=== PATIENT | female | born 1985 | race Asian ===

== ENCOUNTER 2021-09-28 19:22 | Emergency (ER) | payer BC ==
[2021-09-28] MEDS ORDERED: Boostrix 0.5 ML (Tdap) VIAL ONE (20:46)
== END 2021-09-28 20:50 | disposition home or self-care (01) ==
LOC: CSHERS 19:22
DX: S61.452A Open bite of left hand, initial encounter (principal); S60.512A Abrasion of left hand, initial encounter; W55.01XA Bitten by cat, initial encounter
CPT/HCPCS: 90471; 90715; 99283

== ENCOUNTER 2021-10-01 22:40 | Emergency (ER) | payer BC ==
[2021-10-02] MEDS ORDERED: Rabies Vaccine Human 2.5 UNITS VIAL ONE (01:26)
== END 2021-10-02 01:57 | disposition home or self-care (01) ==
LOC: CSHERS 22:40
DX: Z20.3 Contact with and (suspected) exposure to rabies (principal); Z23 Encounter for immunization
CPT/HCPCS: 90375; 90675

== ENCOUNTER → 2021-10-05 | Day surgery (SDC) | payer BC ==
[~2021-10-05] MED LIST: Rabies Vaccine Human 2.5 UNITS VIAL ONE
== END ==
LOC: CSHER/OP 08:11
PROVIDERS: ATTEND Pathology Anatomic Pathology & Clinical Pathology
DX: Z20.3 Contact with and (suspected) exposure to rabies (principal); Z23 Encounter for immunization
CPT/HCPCS: 90375; 90471; 90675; 96372

== ENCOUNTER → 2021-10-12 | Day surgery (SDC) | payer BC | END | disposition home or self-care (01) | LOC: CSHER/OP 17:58 | PROVIDERS: ATTEND Pathology Anatomic Pathology & Clinical Pathology | DX: Z23 Encounter for immunization (principal) | CPT/HCPCS: 90471 ==

== ENCOUNTER → 2021-10-26 | Day surgery (SDC) | payer BC | LOC: CSHERS 23:06 | PROVIDERS: ATTEND Emergency Medicine | DX: Z23 Encounter for immunization (principal) | CPT/HCPCS: 90675 ==

== ENCOUNTER → 2021-11-13 | Day surgery (SDC) | payer BC | LOC: CSHERS 15:03 | PROVIDERS: ATTEND Emergency Medicine | DX: Z23 Encounter for immunization (principal) | CPT/HCPCS: 90675 ==

== ENCOUNTER 2023-02-14 13:44 | Outpatient (CLI) | payer BC | END 2023-02-14 13:45 | disposition home or self-care (01) | LOC: CSHCT 13:44 | PROVIDERS: ATTEND Family Medicine | DX: R91.1 Solitary pulmonary nodule (principal) | CPT/HCPCS: 71250 ==

== ENCOUNTER 2024-06-10 18:36 | Emergency (ER) | payer BC ==
[2024-06-10] MEDS ORDERED: Ketorolac Tromethamine 30 MG (1 mL) VIAL ONE (19:54)
[2024-06-10 20:14] LABS: #Basophils Less than 0.03 10x3/uL (0.0-0.2); #Eosinophils Less than 0.03 10x3/uL (0.0-0.5); #Monocytes 0.69 10x3/uL (0.0-1.1); #Neutrophils 13.61 10x3/uL (1.5-8.4); %Basophils 0.1 % (0.0-2.0); %Lymphocytes 5.9 % (18.0-47.0); %Monocytes 4.5 % (0.0-10.0); Hematocrit 39.5 % (34.9-44.5); Hemoglobin 13.6 g/dL (12.0-15.5); Mean Corpuscular HGB CONC 34.4 g/dL (32.0-36.0); Mean Corpuscular Hemoglobin 30.5 pg (27.0-33.0); Mean Corpuscular Volume 88.6 fL (81.6-98.3); Mean Platelet Volume 9.7 fL (7.4-10.4); Platelet Count 227 10x3/uL (150-450); RBC Distribution Width 11.8 % (11.5-14.5); Red Blood Cell (RBC) Count 4.46 10x6/uL (3.90-5.03); White Blood Cell (WBC) Count 15.29 10x3/uL (3.5-10.5)
[2024-06-10 20:20] LABS: BHCG - Serum Negative (NEGATIVE)
[2024-06-10 20:21] LABS: Pregs Control Background? CLEAR/WHITE (CLR/WHITE); Pregs Control Bar Appear? YES (CONTROL BAR)
[2024-06-10 20:32] LABS: ALT (SGPT) 10 U/L (Less than 34); AST (SGOT) 21 U/L (11-34); Albumin 3.9 g/dL (3.1-4.5); Alkaline Phosphatase 77 U/L (40-110); Anion Gap 16 mmol/L (10-20); BUN (Urea Nitrogen) 11 mg/dL (7.0-18.7); Bilirubin, Total 0.8 mg/dL (0.3-1.2); Calc. Creatinine Clearance 0 mL/min (70-130); Calcium 9.5 mg/dL (7.8-10.44); Carbon Dioxide 17 mmol/L (22-29); Chloride 108 mmol/L (98-107); Estimated GFR 110; Globulin 3.5 g/dL (2.4-3.5); Glucose 120 mg/dL (70-105); Lipase 17 U/L (8-78); Magnesium 1.7 mg/dL (1.6-2.6); Potassium 3.5 mmol/L (3.5-5.1); Protein, Total 7.4 g/dL (6.0-8.3); Sodium 137 mmol/L (136-145)
[2024-06-10 22:45] LABS: Bilirubin Neg (Negative); Blood, Urine Negative (Negative); Glucose, Urine (Dipstick) Normal (Negative); Ketone, Urine 50 mg/dL (Negative); Leukocyte Negative (Negative); Nitrite Negative (Negative); Protein, Urine (Dipstick) 30 mg/dl (Neg-Trace); Urobilinogen Normal mg/dL (Less than 2)
[2024-06-10 22:47] LABS: Clarity Clear (Clear)
[2024-06-10 22:56] LABS: Bacteria/HPF None Seen HPF (None Seen); CAUTI Indications for Culture Dysuria,urgency,freq; RBC/HPF None Seen HPF (0-3); Squamous Epithelial 0-3 HPF (0-3); Urine Culture Reflex No No; WBC/HPF None Seen HPF (0-3); Yeast-Budding Rare HPF (None Seen)
== END 2024-06-10 22:21 | disposition home or self-care (01) ==
LOC: CSHERS 18:36
DX: N83.202 Unspecified ovarian cyst, left side (principal); N83.201 Unspecified ovarian cyst, right side
CPT/HCPCS: 76856; 80053; 81001; 83690; 83735; 84703; 85025; 96374; J1885